=== PATIENT | female | born 1930 | race Two or more races ===

== ENCOUNTER 2016-09-20 20:35 | Emergency (ER) | payer MEDICARE, MEDICAID ==
[~2016-09-20] VITALS: Ht 154.9 cm; Wt 57.0 kg
[~2016-09-20 20:35] MED LIST: ASCO10007 PO; DIPH1TAB28 PO; DORZ210OS OU; MULT1CAP42 PO; VIT1CAPS PO; [UNRECOGNIZED DRUG - OTHER]
[2016-09-20] MEDS ORDERED: TRIA1CAP2 PO (20:49)
[2016-09-20] MEDS ORDERED: LOPE2 PO (20:49)
[2016-09-20] MEDS ORDERED: FESO8TAB PO (20:49)
[2016-09-20] MEDS ORDERED: ASPI81 PO (20:59)
[2016-09-20 22:40] LABS: APPEARANCE,URINE CLEAR (CLEAR); GLUCOSE, URINE (UA) NEGATIVE (NEGATIVE); KETONES,URINE NEGATIVE (NEGATIVE); LEUKOCYTE ESTERASE ,URINE MODERATE (NEGATIVE); OCCULT BLOOD,URINE NEGATIVE (NEGATIVE); PH,URINE 6.5 (5.0-8.0); PROTEIN,URINE NEGATIVE (NEGATIVE)
[2016-09-20 22:41] LABS: ADD UA MICROSCOPIC YES
[2016-09-20 22:54] LABS: SQUAMOUS EPITHELIAL CELL,UR Moderate /LPF (None Seen)
[2016-09-20 22:55] LABS: RBC,URINE 0-2 /HPF (0-2)
[2016-09-20 23:12] VITALS: BP 129/77
== END 2016-09-20 23:21 | disposition home or self-care (01) ==
LOC: EMS 20:37
DX: N39.0 Urinary tract infection, site not specified (principal); I10 Essential (primary) hypertension; Z79.82 Long term (current) use of aspirin
CPT/HCPCS: 87086; 99284